=== PATIENT | female | born 2000 | race Caucasian/White ===

== ENCOUNTER 2021-02-13 09:17 | Emergency (ER) | payer OTHER, SELFPAY ==
--- NOTE | ~2021-02-13 | US_ITS ---
EXAMINATION: US PELVIS CLINICAL INFORMATION: Right-sided adnexal pain. Rule out torsion versus cyst. COMPARISON: Transabdominal imaging of the pelvis earlier today in addition to pelvic ultrasound 11/22/2018. TECHNIQUE: Ultrasound of the pelvis is performed using transvaginal transducers along with Doppler. Transvaginal imaging is performed due to inadequate visualization transabdominally. FINDINGS: Adnexa: Both ovaries are visualized. There is normal color flow to each ovary. There is no ovarian torsion. There is no pelvic ascites or fluid collection. Right ovary measures 3.6 x 1.2 x 1.8 cm. Left ovary measures 3.1 x 1.8 x 2.5 cm. Within the left ovary there is an approximately 1.1 cm hypoechoic structure which demonstrates peripheral vascularity, nonspecific but statistically a corpus luteum. US/US transvaginal IMPRESSION: Both ovaries demonstrate normal color Doppler flow.
--- NOTE | ~2021-02-13 | US_ITS ---
EXAMINATION: US PELVIS CLINICAL INFORMATION: Lower abdominal pain. Vaginal bleeding with clots. COMPARISON: CT abdomen pelvis 11/24/2018 and pelvic ultrasound 11/22/2018. TECHNIQUE: The pelvis was evaluated using transabdominal imaging. Transvaginal imaging was declined by the patient. FINDINGS: The uterus measures 8.0 x 3.5 x 4.9 cm in longitudinal by AP by transverse dimension. The endometrial stripe is not thickened and measures 0.3 cm. The left ovary measures approximately 1.9 x 1.3 x 1.7 cm and is normal. The right ovary was not clearly visualized. There are no abnormal adnexal masses. There is no free fluid in the pelvis. US/US pelvic complete IMPRESSION: Unremarkable transabdominal sonographic imaging of the uterus and left ovary. The right ovary was not clearly visualized.
--- NOTE | ~2021-02-13 | CT_ITS ---
EXAMINATION: CT ABDOMEN AND PELVIS WITH CONTRAST CLINICAL INFORMATION: Right lower quadrant abdominal pain. Rule out appendicitis. COMPARISON: Previous pelvic ultrasound from earlier the same day 18 of the abdomen and pelvis November 2018 TECHNIQUE: Multidetector volumetric images were obtained from the superior aspect of the liver through the pubic symphysis following administration 85 mL of Omnipaque 350 intravenous contrast. Sagittal and coronal reformatted images were obtained on the technologist's workstation. Oral contrast: Yes This CT examination was performed using dose optimization techniques as appropriate, variously including the following: *Automated exposure control *Adjustment of mA and/or kV according to patient size (this includes techniques or standardized protocols for targeted exams where dose is matched to indication/reason for exam; i.e. extremities or head) *Use of iterative reconstruction technique DLP: 342 mGy-cm FINDINGS: LUNG BASES: The visualized lung bases are unremarkable. LIVER, GALLBLADDER, AND BILIARY TREE: The liver is normal in size, shape, and attenuation. There are small calcifications in the central liver. No other focal hepatic lesion or biliary ductal dilatation is present. The gallbladder is unremarkable with no evidence of radiopaque gallstones, gallbladder wall thickening, or obvious pericholecystic inflammatory changes. PANCREAS: Unremarkable. SPLEEN: Unremarkable. ADRENAL GLANDS: Unremarkable. KIDNEYS AND URETERS: There are small bilateral renal stones. Kidneys are otherwise unremarkable. No hydronephrosis is seen. BLADDER: Unremarkable. GASTROINTESTINAL TRACT: The small and large bowel are unremarkable. The appendix is unremarkable. ABDOMINAL WALL: No significant hernia is appreciated. LYMPH NODES: Normal. VASCULAR: Unremarkable. PELVIC VISCERA: Unremarkable. OSSEOUS STRUCTURES: Unremarkable. CT/CT abdomen pelvis w con IMPRESSION: Small bilateral renal stones. Otherwise unremarkable exam. Normal-appearing appendix.
[2021-02-13 09:38] VITALS: BP 99/63; PULSE 87; RESP 17; TEMP 36.4; O2SAT 100; BMI 22.1
--- NOTE | 2021-02-13 11:07 | ED.FEMALEGU ---
HPI - Female Genitourinary General Chief complaint: Vaginal Bleeding Stated complaint: Vaginal bleeding Time Seen by Provider: 02/13/21 10:49 Source: patient Mode of arrival: ambulatory History of Present Illness HPI Narrative: 20-year-old female with a past medical history of kidney stones, presenting to the ED complaining vaginal bleeding with clots since yesterday. Reports filled 6 pads since this morning. LMP 2 weeks ago. Reports associated lower abdominal discomfort, nausea, and lightheadedness. Denies taking anticoagulation. Denies fever, chills, vomiting, diarrhea/constipation, vaginal discharge, dysuria, flank pain MD elicited complaint: vaginal bleeding Related Data Allergies Allergy/AdvReac Type Severity Reaction Status Date / Time blueberry [BLUEBERRY] Allergy Intermediate HIVES Unverified 12/24/19 18:45 Review of Systems Review of Systems: Constitutional: No Fever, No Chills, No Fatigue, No Malaise ENT/Mouth: No Ear Pain, No Nasal Congestion, No sore throat, No Rhinorrhea Eyes: No Eye Pain, No Redness, No Discharge, No Vision Changes Cardiovascular: No Chest Pain, No SOB, No Edema, No Palpitations Respiratory: No Cough, No Dyspnea Gastrointestinal: + Nausea, No Vomiting, No Diarrhea, No Constipation, + Abdominal pain, No Hematochezia, No Melena Genitourinary: + irregular bleeding, No Dysuria, No Hematuria, No Flank Pain, No vaginal bleeding Musculoskeletal: No joint pain, No Myalgias, No Joint Swelling Skin: No Skin Lesions, No rash Neuro: No Weakness, No Numbness, + lightheadedness, No Headache Yes all other systems are reviewed and are negative [facility] Past Medical History Attestation statement: The following information was validated with the patient. Medical History (Updated 02/13/21 @ 15:41 by SANTHOSH Liu) Kidney stone Social History Social History Alcohol intake: unknown Patient Tobacco Use Status: Tobacco use Unknown Use of substances other than those prescribed or required for medical reasons: No Advance Directives: No Advance Directives Information Provided: No Patient : No Physical Exam Vital Signs: Vital Signs: Last Vital Signs Temp 97.5 F 02/13/21 09:38 Pulse 86 02/13/21 11:36 Resp 14 02/13/21 11:31 BP 112/68 02/13/21 11:36 Pulse Ox 100 02/13/21 09:38 Body Mass Index 22.1 Const: General: cooperative, healthy appearing and no acute distress Orientation/consciousness: patient oriented x3 Limitations: no limitations HENMT: Head: Yes normal to inspection Ears: hearing grossly normal bilaterally General nose exam: Normal external nose present Face and sinus: Yes normal facial exam Eyes: General: appearance normal, both eyes and all related structures EOM: EOMs intact bilaterally Neck: Neck: Yes normal visual inspection Resp: Effort & Inspection: normal respiratory effort, no respiratory distress and no stridor Cardio: Rate: regular rate Heart sounds: S1 normal heart sound present and S2 normal heart sound present GI: Inspection: Yes normal to inspection Palpation (GI): Soft to palpation, Tenderness to palpation present (GI) (Right suprapubic) in the epigastrum, no guarding and not rigid : General: Yes no CVA tenderness Speculum Exam - Vagina: vaginal bleeding (With clots, no active hemorrhage, cleared with Q-tips) Speculum Exam - Cervix: nontender Bimanual exam- vagina & uterus: No Cervical tenderness present and no cervical motion tenderness Bimanual Exam- Adnexa, other: tender on the right and no masses noted OB/external & speculum: vaginal bleeding (With clots, no active hemorrhage, cleared with Q-tips) Back/Spine/Pelvis: Back: no CVA tenderness Skin: Rashes: no rashes Wounds: no wounds Neuro: General: patient oriented x3 Gait exam (Neuro): Normal gait present Extrem: General: Yes normal to inspection Course Course Course Narrative: -urine negative US pelvic complete IMPRESSION: Unremarkable transabdominal sonographic imaging of the uterus and left ovary. The right ovary was not clearly visualized. ?>> discussed with patient need transvaginal images to evaluate right ovary where she is having pain, patient is now agreeable, additionally will obtain CT to rule out appendicitis due to patient's continued pain -H&H stable 10.9/34.2 around patient's baseline > will do 3 hour repeat -labs otherwise unremarkable, UA with RBC/not infected -1508--US transvaginal IMPRESSION: Both ovaries demonstrate normal color Doppler flow. CT abdomen pelvis w con IMPRESSION: Small bilateral renal stones. Otherwise unremarkable exam. Normal-appearing appendix. -1539--repeat CBC stable. Results discussed with patient including worrisome signs and symptoms and strict return precautions as needed follow-up with OBGYN/PCP. Patient verbalized understanding feel safe for discharge home at this time MDM - Female Genitourinary MDM Narrative Medical decision making narrative: 20-year-old female with a past medical history of kidney stones, presenting to the ED complaining vaginal bleeding with clots since yesterday. On exam vital signs stable, NAD, abdomen soft with epigastric/right suprapubic tenderness, on pelvic vaginal bleeding with clots noted, no active hemorrhage, cleared with Q-tips, right adnexal tenderness noted, no CMT. Concern for pancreatitis vs /ectopic vs DUB vs ovarian cyst vs ? Torsion Plan: Labs, UA, pelvic ultrasound, , pain management, re-evaluate Medical Records Attestation: I reviewed the patient's medical records. Lab Data Attestation: I reviewed the patient's lab results. Result diagrams: 02/13/21 15:16 02/13/21 11:31 Labs: Lab Results 02/13/21 02/13/21 02/13/21 Range/Units 11:20 11:20 11:31 WBC 6.8 (4.8-10.8) X10*3/uL RBC 4.03 L (4.20-5.50) X10*6/uL Hgb 10.9 L (12.0-16.0) g/dl Hct 34.2 L (37.0-47.0) % MCV 84.9 (80.0-98.0) fL MCH 27.0 (27.0-33.0) pg MCHC 31.9 (31.0-35.0) g/dl RDW 14.1 (11.0-16.0) % Plt Count 172 (160-400) X10*3/uL MPV 11.3 (9.4-12.3) fL Immature Gran % (Auto) 0.3 (0.0-0.4) % Neut % (Auto) 70.0 (45-73) % Lymph % (Auto) 22.0 (20-40) % Thomas % (Auto) 6.8 (2-11) % Eos % (Auto) 0.6 (0-4) % Baso % (Auto) 0.3 (0-2) % Lymph # (Auto) 1.5 (1.2-4.9) X10*3/uL Thomas # (Auto) 0.5 (0.1-1.2) X10*3/uL Eos # (Auto) 0.0 (0.0-0.4) X10*3/uL Baso # (Auto) 0.0 (0.0-0.2) X10*3/uL Abs Immat Gran (auto) 0.02 (0.00-0.03) X10*3/uL Absolute Neuts (auto) 4.7 (2.0-8.3) x10*3/uL Absolute Nucleated RBC 0.000 (0.0-0.012) X10*3/uL Nucleated RBC % (auto) 0.0 (0.0-0.2) /100WBC Sodium (135-145) mmol/L Potassium (3.3-5.1) mmol/L Chloride (96-108) mmol/L Carbon Dioxide (22-29) mmol/L Anion Gap (12-20) BUN (9-16) mg/dL Creatinine (0.5-1.4) mg/dL Estim Creat Clear Calc Estimated GFR Random Glucose (60-115) mg/dL Calcium (8.4-10.2) mg/dL Magnesium (1.6-2.6) mg/dL Total Bilirubin (0.0-1.0) mg/dL Direct Bilirubin (0.0-0.5) mg/dL AST (5-31) U/L ALT (0-31) U/L Alkaline Phosphatase (39-117) U/L Total Protein (6.5-8.0) g/dL Albumin (3.5-5.0) g/dL Lipase (8-78) U/L Beta HCG, Quant mIU/mL Urine Color YELLOW Urine Appearance CLEAR Urine pH 5.5 (5.0-8.0) Ur Specific [place] >= 1.030 H (1.005-1.025) Urine Protein NEG (NEG-TRACE) MG/DL Urine Glucose (UA) NEG (NEG) MG/DL Urine Ketones NEG (NEG) MG/DL Urine Blood 3+ H (NEG) Urine Nitrite NEG (NEG) Ur Leukocyte Esterase NEG (NEG) Urine RBC 10-14 H (0) /HPF Urine WBC 0 (0-4) /HPF Ur Squamous Epith Cells 2+ /LPF Urine Bacteria NONE /LPF Urine Mucus 3+ /LPF Urine Test NEGATIVE (NEGATIVE) 02/13/21 02/13/21 Range/Units 11:31 15:16 WBC 6.4 (4.8-10.8) X10*3/uL RBC 3.71 L (4.20-5.50) X10*6/uL Hgb 10.2 L (12.0-16.0) g/dl Hct 31.6 L (37.0-47.0) % MCV 85.2 (80.0-98.0) fL MCH 27.5 (27.0-33.0) pg MCHC 32.3 (31.0-35.0) g/dl RDW 14.2 (11.0-16.0) % Plt Count 156 L (160-400) X10*3/uL MPV 10.9 (9.4-12.3) fL Immature Gran % (Auto) 0.3 (0.0-0.4) % Neut % (Auto) 64.5 (45-73) % Lymph % (Auto) 27.1 (20-40) % Thomas % (Auto) 7.0 (2-11) % Eos % (Auto) 0.9 (0-4) % Baso % (Auto) 0.2 (0-2) % Lymph # (Auto) 1.7 (1.2-4.9) X10*3/uL Thomas # (Auto) 0.5 (0.1-1.2) X10*3/uL Eos # (Auto) 0.1 (0.0-0.4) X10*3/uL Baso # (Auto) 0.0 (0.0-0.2) X10*3/uL Abs Immat Gran (auto) 0.02 (0.00-0.03) X10*3/uL Absolute Neuts (auto) 4.1 (2.0-8.3) x10*3/uL Absolute Nucleated RBC 0.000 (0.0-0.012) X10*3/uL Nucleated RBC % (auto) 0.0 (0.0-0.2) /100WBC Sodium 137 (135-145) mmol/L Potassium 3.9 (3.3-5.1) mmol/L Chloride 107 (96-108) mmol/L Carbon Dioxide 25 (22-29) mmol/L Anion Gap 9 L (12-20) BUN 10 (9-16) mg/dL Creatinine 0.75 (0.5-1.4) mg/dL Estim Creat Clear Calc 102.4 Estimated GFR > 60 Random Glucose 90 (60-115) mg/dL Calcium 8.9 (8.4-10.2) mg/dL Magnesium 1.8 (1.6-2.6) mg/dL Total Bilirubin 0.7 (0.0-1.0) mg/dL Direct Bilirubin 0.3 (0.0-0.5) mg/dL AST 17 (5-31) U/L ALT 6 (0-31) U/L Alkaline Phosphatase 59 (39-117) U/L Total Protein 6.7 (6.5-8.0) g/dL Albumin 4.1 (3.5-5.0) g/dL Lipase 32 (8-78) U/L Beta HCG, Quant < 2 mIU/mL Urine Color Urine Appearance Urine pH (5.0-8.0) Ur Specific [place] (1.005-1.025) Urine Protein (NEG-TRACE) MG/DL Urine Glucose (UA) (NEG) MG/DL Urine Ketones (NEG) MG/DL Urine Blood (NEG) Urine Nitrite (NEG) Ur Leukocyte Esterase (NEG) Urine RBC (0) /HPF Urine WBC (0-4) /HPF Ur Squamous Epith Cells /LPF Urine Bacteria /LPF Urine Mucus /LPF Urine Test (NEGATIVE) Discharge Plan Discharge Clinical Impression: Vaginal bleeding Abdominal pain Qualifiers: Abdominal location: right lower quadrant Qualified Code(s): R10.31 - Right lower quadrant pain Patient Disposition: Home, Self-Care Additional Instructions: Your blood work was reassuring today in the emergency department Her with negative Your ultrasound was unremarkable Her CT scan did not show any acute findings Please stay hydrated and rest at home Take Tylenol and Motrin If her symptoms persist or worsen, your bleeding increases, you develop constant worsening abdominal pain, your unable to eat or drink, lightheadedness or dizziness please return to the ED Call your OBGYN for follow-up Referrals: Sin Romero MD [Physician] - 2 days
[2021-02-13 11:30] LABS: Appearance Urine CLEAR; Color Urine YELLOW; Glucose Urine UA NEG (NEG); Leukocyte Esterase Urine NEG (NEG); Nitrite Urine NEG (NEG); PH 5.5 (5.0-8.0); Specific Gravity - Urine >= 1.030 (1.005-1.025); UACC Culture Trigger NO; Urine Blood 3+ (NEG); Urine Ketones NEG (NEG); Urine Protein NEG (NEG-TRACE)
[2021-02-13 11:31] VITALS: BP 105/47; PULSE 76; RESP 14
[2021-02-13 11:32] LABS: Urine Pregnancy NEGATIVE (NEGATIVE)
[2021-02-13 11:33] LABS: UPreg QC Valid YES
[2021-02-13 11:35] VITALS: BP 105/47; BP 98/55; PULSE 74; PULSE 76
[2021-02-13] MEDS: 0.9 % Sodium Chloride 1,000 ML 999 ML IVCONT (11:35)
[2021-02-13] MEDS: Famotidine/PF 20 MG/2 ML VIAL IVPUSH (11:35)
[2021-02-13 11:36] VITALS: BP 112/68; PULSE 86
[2021-02-13 11:36] LABS: MANUAL DIFF FLAG NO
[2021-02-13 11:41] LABS: Basophils Percent Auto 0.3 % (0-2); Eosinophils Percent Auto 0.6 % (0-4); Hematocrit 34.2 % (37.0-47.0); Hemoglobin 10.9 g/dl (12.0-16.0); Imm Gran Abs Auto 0.02 X10*3/uL (0.00-0.03); Imm Gran Pct Auto 0.3 % (0.0-0.4); Lymphocytes Absolute Auto 1.5 X10*3/uL (1.2-4.9); Mean Corpuscular HGB Conc 31.9 g/dl (31.0-35.0); Mean Corpuscular Volume 84.9 fL (80.0-98.0); Mean Platelet Volume 11.3 fL (9.4-12.3); Monocytes Absolute Auto 0.5 X10*3/uL (0.1-1.2); Monocytes Percent Auto 6.8 % (2-11); Neutrophils Absolute Auto 4.7 x10*3/uL (2.0-8.3); Platelet Count 172 X10*3/uL (160-400); Red Blood Count 4.03 X10*6/uL (4.20-5.50); Red Cell Distribution Width 14.1 % (11.0-16.0); White Blood Count 6.8 X10*3/uL (4.8-10.8)
[2021-02-13 11:41] LABS: Mucus Urine 3+ /LPF; Squamous Epithelial Cell Urine 2+ /LPF; WBC Urine 0 /HPF (0-4)
[2021-02-13 12:11] LABS: HCG Quantitative < 2 mIU/mL
[2021-02-13 12:13] LABS: Alanine Aminotransferase 6 U/L (0-31); Albumin Level 4.1 g/dL (3.5-5.0); Alkaline Phosphatase 59 U/L (39-117); Anion Gap 9 (12-20); Aspartate Amino Transferase 17 U/L (5-31); Bilirubin Direct 0.3 mg/dL (0.0-0.5); Bilirubin Total 0.7 mg/dL (0.0-1.0); Blood Urea Nitrogen 10 mg/dL (9-16); Calcium 8.9 mg/dL (8.4-10.2); Carbon Dioxide 25 mmol/L (22-29); Chloride 107 mmol/L (96-108); Creatinine Clr Calc Pharmacy 102.4; Estimated Glomerular Filt Rate > 60; Glucose Random 90 mg/dL (60-115); Lipase 32 U/L (8-78); Magnesium 1.8 mg/dL (1.6-2.6); Potassium 3.9 mmol/L (3.3-5.1); Sodium 137 mmol/L (135-145); Total Protein 6.7 g/dL (6.5-8.0)
[2021-02-13] MEDS: Ketorolac Tromethamine 15 MG/ML VIAL IVPUSH (12:57)
[2021-02-13] MEDS: ondansetron HCL 4 MG/2 ML VIAL IVPUSH (12:57)
[2021-02-13] MEDS: iohexoL 350 MG/ML 100 ML INFUS..BTL IV (14:50)
[2021-02-13 15:20] LABS: MANUAL DIFF FLAG NO
[2021-02-13 15:21] LABS: Basophils Percent Auto 0.2 % (0-2); Eosinophils Absolute Auto 0.1 X10*3/uL (0.0-0.4); Eosinophils Percent Auto 0.9 % (0-4); Hematocrit 31.6 % (37.0-47.0); Hemoglobin 10.2 g/dl (12.0-16.0); Imm Gran Abs Auto 0.02 X10*3/uL (0.00-0.03); Imm Gran Pct Auto 0.3 % (0.0-0.4); Lymphocytes Absolute Auto 1.7 X10*3/uL (1.2-4.9); Lymphocytes Percent Auto 27.1 % (20-40); Mean Corpuscular HGB Conc 32.3 g/dl (31.0-35.0); Mean Corpuscular Hemoglobin 27.5 pg (27.0-33.0); Mean Corpuscular Volume 85.2 fL (80.0-98.0); Mean Platelet Volume 10.9 fL (9.4-12.3); Monocytes Absolute Auto 0.5 X10*3/uL (0.1-1.2); Neutrophils Absolute Auto 4.1 x10*3/uL (2.0-8.3); Neutrophils Percent Auto 64.5 % (45-73); Platelet Count 156 X10*3/uL (160-400); Red Blood Count 3.71 X10*6/uL (4.20-5.50); Red Cell Distribution Width 14.2 % (11.0-16.0); White Blood Count 6.4 X10*3/uL (4.8-10.8)
== END 2021-02-13 16:46 | disposition home or self-care (01) ==
PROVIDERS: Physician Assistant; Emergency Provider Emergency Medicine Emergency Medical Services
DX: N93.9 Abnormal uterine and vaginal bleeding, unspecified (principal); R10.31 Right lower quadrant pain; R10.2 Pelvic and perineal pain; Z79.899 Other long term (current) drug therapy
CPT/HCPCS: 36415; 74177; 76830; 76856; 80048; 80076; 81001; 81025; 83690; 83735; 84702; 85025; 96361; 96374; 96375; 99284; 99285; J1885; J2405; Q9967

== ENCOUNTER 2021-02-21 20:53 | Emergency (ER) | payer OTHER, SELFPAY ==
[2021-02-21 21:11] VITALS: BP 100/61; PULSE 86; RESP 16; TEMP 36.5; O2SAT 100; BMI 21.6
[2021-02-21 21:58] VITALS: BP 108/68; PULSE 78; RESP 18; O2SAT 100
--- NOTE | 2021-02-21 21:59 | ED_ITS ---
HPI - Abdominal Pain General Chief Complaint: Abdominal Pain Stated Complaint: abd pain Time Seen by Provider: 02/21/21 21:15 Source: patient Mode of arrival: ambulatory Limitations: no limitations History of Present Illness HPI narrative: This is a 20 years old patient presented with a chief complaint of lower abdominal pain since yesterday. She denies any vomiting my she endorses nausea there is no diarrhea. The patient was evaluated in the emergency department on February [address] scan of the abdomen and pelvis under ultrasound of the pelvis both normal MD elicited complaint: abdominal pain Pertinent past history: none Onset (ago): day(s) (1) Pain Consistency: constant Location: LLQ Severity: moderate Quality: cramping Radiation: none Migration to: no migration Associated symptoms: nausea Related Data Allergies Allergy/AdvReac Type Severity Reaction Status Date / Time blueberry [BLUEBERRY] Allergy Intermediate HIVES Verified 02/21/21 22:15 Review of Systems Review of Systems Yes all other systems are reviewed and are negative Constitutional: Reports no additional constitutional complaints Cardiovascular: Reports no additional cardiovascular complaints Respiratory: Reports no additional respiratory complaints Gastrointestinal: Reports no additional gastrointestinal complaints, Denies change in stool character and Denies coffee ground emesis Musculoskeletal: Reports no additional musculoskeletal complaints Physical Exam Vital Signs: Vital Signs: Last Vital Signs Temp 98.7 F 02/22/21 00:35 Pulse 81 02/22/21 00:35 Resp 16 02/22/21 00:35 BP 110/72 02/22/21 00:35 Pulse Ox 99 02/22/21 00:35 Body Mass Index 21.6 Const: General: cooperative, healthy appearing, comfortable and no acute distress Nutritional Appearance: average body habitus Orientation/consci ousness: patient oriented x3 HENMT: Head: Yes normal to inspection Face and sinus: Yes normal facial exam Mouth: Normal oral and palatal mucosa present Teeth and gingiva: dentition normal Throat: Yes posterior oropharynx normal Neck: Neck: Yes normal visual inspection Chest: Chest palpation & inspection: normal inspection of the chest Resp: Effort & Inspection: normal respiratory effort Auscultation: clear to auscultation bilaterally Cardio: Jugular venous distension: no JVD Rate: regular rate Rhythm: regular rhythm GI: Inspection: Yes normal to inspection Palpation (GI): Soft to palpation and Tenderness to palpation present (GI) in the LLQ Auscultation: normal bowel sounds Skin: General skin exam: no rashes or lesions noted, elasticity normal and turgor normal Rashes: no rashes Neuro: General: patient oriented x3 Course Reevaluation(s) Reevaluation #1: She is feeling much better at this time labs are good, I do not think we need to repeat another CT scan nor another ultrasound ,she had imaging done on February 13 patient is only 20 years old MDM - Abdominal Pain Lab Data Result diagrams: 02/21/21 22:06 02/21/21 22:06 Labs: Lab Results 02/21/21 02/21/21 02/21/21 Range/Units 22:06 22:06 22:06 WBC 7.6 (4.8-10.8) X10*3/uL RBC 4.17 L (4.20-5.50) X10*6/uL Hgb 11.6 L (12.0-16.0) g/dl Hct 35.3 L (37.0-47.0) % MCV 84.7 (80.0-98.0) fL MCH 27.8 (27.0-33.0) pg MCHC 32.9 (31.0-35.0) g/dl RDW 14.3 (11.0-16.0) % Plt Count 230 D (160-400) X10*3/uL MPV 10.9 (9.4-12.3) fL Immature Gran % (Auto) 0.3 (0.0-0.4) % Neut % (Auto) 56.2 (45-73) % Lymph % (Auto) 33.3 (20-40) % [place] % (Auto) 8.9 (2-11) % Eos % (Auto) 1.0 (0-4) % Baso % (Auto) 0.3 (0-2) % Lymph # (Auto) 2.5 (1.2-4.9) X10*3/uL [place] # (Auto) 0.7 (0.1-1.2) X10*3/uL Eos # (Auto) 0.1 (0.0-0.4) X10*3/uL Baso # (Auto) 0.0 (0.0-0.2) X10*3/uL Abs Immat Gran (auto) 0.02 (0.00-0.03) X10*3/uL Absolute Neuts (auto) 4.3 (2.0-8.3) x10*3/uL Absolute Nucleated RBC 0.000 (0.0-0.012) X10*3/uL Nucleated RBC % (auto) 0.0 (0.0-0.2) /100WBC Sodium 139 (135-145) mmol/L Potassium 3.8 (3.3-5.1) mmol/L Chloride 106 (96-108) mmol/L Carbon Dioxide 29 (22-29) mmol/L Anion Gap 8 L (12-20) BUN 8 L (9-16) mg/dL Creatinine 0.80 (0.5-1.4) mg/dL Estim Creat Clear Calc 100.0 Estimated GFR > 60 Random Glucose 97 (60-115) mg/dL Calcium 9.3 (8.4-10.2) mg/dL Total Bilirubin 0.8 (0.0-1.0) mg/dL AST 18 (5-31) U/L ALT 8 (0-31) U/L Alkaline Phosphatase 62 (39-117) U/L Total Protein 7.0 (6.5-8.0) g/dL Albumin 4.2 (3.5-5.0) g/dL Lipase 44 (8-78) U/L Beta HCG, Quant < 2 mIU/mL Urine Color Urine Appearance Urine pH (5.0-8.0) Ur Specific [place] (1.005-1.025) Urine Protein (NEG-TRACE) MG/DL Urine Glucose (UA) (NEG) MG/DL Urine Ketones (NEG) MG/DL Urine Blood (NEG) Urine Nitrite (NEG) Ur Leukocyte Esterase (NEG) Urine Test (NEGATIVE) 02/22/21 02/22/21 Range/Units 00:13 00:13 WBC (4.8-10.8) X10*3/uL RBC (4.20-5.50) X10*6/uL Hgb (12.0-16.0) g/dl Hct (37.0-47.0) % MCV (80.0-98.0) fL MCH (27.0-33.0) pg MCHC (31.0-35.0) g/dl RDW (11.0-16.0) % Plt Count (160-400) X10*3/uL MPV (9.4-12.3) fL Immature Gran % (Auto) (0.0-0.4) % Neut % (Auto) (45-73) % Lymph % (Auto) (20-40) % [place] % (Auto) (2-11) % Eos % (Auto) (0-4) % Baso % (Auto) (0-2) % Lymph # (Auto) (1.2-4.9) X10*3/uL [place] # (Auto) (0.1-1.2) X10*3/uL Eos # (Auto) (0.0-0.4) X10*3/uL Baso # (Auto) (0.0-0.2) X10*3/uL Abs Immat Gran (auto) (0.00-0.03) X10*3/uL Absolute Neuts (auto) (2.0-8.3) x10*3/uL Absolute Nucleated RBC (0.0-0.012) X10*3/uL Nucleated RBC % (auto) (0.0-0.2) /100WBC Sodium (135-145) mmol/L Potassium (3.3-5.1) mmol/L Chloride (96-108) mmol/L Carbon Dioxide (22-29) mmol/L Anion Gap (12-20) BUN (9-16) mg/dL Creatinine (0.5-1.4) mg/dL Estim Creat Clear Calc Estimated GFR Random Glucose (60-115) mg/dL Calcium (8.4-10.2) mg/dL Total Bilirubin (0.0-1.0) mg/dL AST (5-31) U/L ALT (0-31) U/L Alkaline Phosphatase (39-117) U/L Total Protein (6.5-8.0) g/dL Albumin (3.5-5.0) g/dL Lipase (8-78) U/L Beta HCG, Quant mIU/mL Urine Color YELLOW Urine Appearance CLEAR Urine pH 6.5 (5.0-8.0) Ur Specific [place] 1.025 (1.005-1.025) Urine Protein NEG (NEG-TRACE) MG/DL Urine Glucose (UA) NEG (NEG) MG/DL Urine Ketones NEG (NEG) MG/DL Urine Blood NEG (NEG) Urine Nitrite NEG (NEG) Ur Leukocyte Esterase NEG (NEG) Urine Test NEGATIVE (NEGATIVE) Discharge Plan Discharge Clinical Impression: Abdominal pain Patient Disposition: Home, Self-Care Instructions: Abdominal Pain (ED) Additional Instructions: Follow-up with your primary care physician tomorrow clear liquid diet for 24:48 hours return to the emergency room if you worse any concern Stand Alone Forms: Work/School Release Interventions: ED Discharge Assessment Last Done: 02/22/21 00:37 Discharge Date/Time: 02/22/21 00:38 [facility] Past Medical History Medical History Kidney stone Social History Social History Alcohol intake: unknown Patient Tobacco Use Status: Tobacco use Unknown Advance Directives: No Advance Directives Information Provided: No Patient : No
[2021-02-21] MEDS: diphenhydrAMINE HCL 50 MG/ML VIAL 12.5 MG IVPUSH (22:11)
[2021-02-21] MEDS: 0.9 % Sodium Chloride 1,000 ML 999 ML IVCONT (22:11)
[2021-02-21] MEDS: Metoclopramide HCl 10 MG/2 ML VIAL IVPUSH (22:12)
[2021-02-21 22:13] LABS: Basophils Percent Auto 0.3 % (0-2); Eosinophils Absolute Auto 0.1 X10*3/uL (0.0-0.4); Hematocrit 35.3 % (37.0-47.0); Hemoglobin 11.6 g/dl (12.0-16.0); Imm Gran Abs Auto 0.02 X10*3/uL (0.00-0.03); Imm Gran Pct Auto 0.3 % (0.0-0.4); Lymphocytes Absolute Auto 2.5 X10*3/uL (1.2-4.9); Lymphocytes Percent Auto 33.3 % (20-40); MANUAL DIFF FLAG NO; Mean Corpuscular HGB Conc 32.9 g/dl (31.0-35.0); Mean Corpuscular Hemoglobin 27.8 pg (27.0-33.0); Mean Corpuscular Volume 84.7 fL (80.0-98.0); Mean Platelet Volume 10.9 fL (9.4-12.3); Monocytes Absolute Auto 0.7 X10*3/uL (0.1-1.2); Monocytes Percent Auto 8.9 % (2-11); Neutrophils Absolute Auto 4.3 x10*3/uL (2.0-8.3); Neutrophils Percent Auto 56.2 % (45-73); Platelet Count 230 X10*3/uL (160-400); Red Blood Count 4.17 X10*6/uL (4.20-5.50); Red Cell Distribution Width 14.3 % (11.0-16.0); White Blood Count 7.6 X10*3/uL (4.8-10.8)
[2021-02-21 22:28] LABS: Alanine Aminotransferase 8 U/L (0-31); Albumin Level 4.2 g/dL (3.5-5.0); Alkaline Phosphatase 62 U/L (39-117); Anion Gap 8 (12-20); Aspartate Amino Transferase 18 U/L (5-31); Bilirubin Total 0.8 mg/dL (0.0-1.0); Blood Urea Nitrogen 8 mg/dL (9-16); Calcium 9.3 mg/dL (8.4-10.2); Carbon Dioxide 29 mmol/L (22-29); Chloride 106 mmol/L (96-108); Estimated Glomerular Filt Rate > 60; Glucose Random 97 mg/dL (60-115); Lipase 44 U/L (8-78); Potassium 3.8 mmol/L (3.3-5.1); Sodium 139 mmol/L (135-145)
[2021-02-21 22:31] LABS: HCG Quantitative < 2 mIU/mL
[2021-02-22 00:20] LABS: Appearance Urine CLEAR; Color Urine YELLOW; Glucose Urine UA NEG (NEG); Leukocyte Esterase Urine NEG (NEG); Nitrite Urine NEG (NEG); PH 6.5 (5.0-8.0); Specific Gravity - Urine 1.025 (1.005-1.025); Urine Blood NEG (NEG); Urine Ketones NEG (NEG); Urine Protein NEG (NEG-TRACE)
[2021-02-22 00:23] LABS: UPreg QC Valid YES; Urine Pregnancy NEGATIVE (NEGATIVE)
[2021-02-22 00:35] VITALS: BP 110/72; PULSE 81; RESP 16; TEMP 37.1; O2SAT 99
--- NOTE | 2021-02-22 00:36 | PC.NURSE ---
Pt alert and oriented x4, calm and cooperative. Pt states pain improved. Denies N/V at this time. Denies pain with urinating. Pt voided in ER without issues. Pt educated on dc. IV removed. Vitals stable. Pt ambulated out of ER with friend.
== END 2021-02-22 00:38 | disposition home or self-care (01) ==
PROVIDERS: Student in an Organized Health Care Education/Training Program; Emergency Provider Emergency Medicine
DX: R10.32 Left lower quadrant pain (principal); Z79.899 Other long term (current) drug therapy
CPT/HCPCS: 36415; 80053; 81003; 81025; 83690; 84702; 85025; 96361; 96374; 96375; 99284; J1200; J2765

== ENCOUNTER 2021-12-09 13:08 | Emergency (ER) | payer OTHER, SELFPAY ==
--- NOTE | ~2021-12-09 | US_ITS ---
EXAMINATION: US renal BI, US OB limited CLINICAL INFORMATION: Right flank pain. Renal colic. Diffuse abdominal pain. 15 weeks . COMPARISON: Pelvic ultrasound 02/13/2021. CT abdomen pelvis 02/13/2021. TECHNIQUE: Transabdominal grayscale and color renal ultrasonography; transabdominal grayscale and M-mode OB ultrasound. FINDINGS: Right kidney: 11.7 cm x 3.7 cm x 5.6 cm. No hydronephrosis. Echogenic foci consistent with renal calculi: A pole 5 mm focus, mid pole 3 mm focus, lower pole 4 mm focus. No perinephric fluid collections. No focal parenchymal lesions. Normal color Doppler interrogation. Left kidney: 10.8 cm x 4.4 cm x 4.9 cm. No hydronephrosis or focal parenchymal lesions. No perinephric fluid collections. Echogenic foci consistent with calculi: A pole 3 mm, lower pole 4 mm. Normal color Doppler interrogation. OB ultrasound: Single live intrauterine gestation is identified. The placenta is normal in appearance. No retroplacental fluid collections are identified. The cervical os is not completely visualized. Partial visualization is made of the right ovary measuring 2.1 cm x 2.3 cm x 3.0 cm. Partial visualization is made of the left ovary measuring 3.8 cm x 1.5 cm x 1.6 cm. The ovaries are normal in appearance. No gross fluid is noted in the pelvic cul-de-sac. Electrician Master measurements: Biparietal diameter 3.01 cm; 15 weeks 4 days. Occipital frontal diameter: 3.85 cm; 15 weeks 4 days. Head circumference 11.38 cm; 15 weeks 4 days. Abdominal circumference: 9.17 cm; 15 weeks 3 days. Femur length: 1.69 cm; 15 weeks 0 days. M-mode interrogation demonstrates a heart rate of 140 bpm. Estimated weight 0 lbs. 4 oz. (118 g) 43 percentile. Sonographic gestational age: 15 weeks 3 day. Estimated date of delivery 05/30/2022. The stomach is identified. The kidneys, bladder and heart are not visualized. US/US renal BI IMPRESSION: Renal ultrasound: *Bilateral multiple nonobstructing punctate renal calculi measuring up to 4 mm in diameter. No hydronephrosis or perinephric fluid collections. No right-sided hydronephrosis. Limited OB ultrasound: *Single live intrauterine gestation, sonographic estimated age 15 weeks 3 days, estimated date of delivery 05/30/2022. *Of note, this examination does not comprise a comprehensive anatomic survey.
--- NOTE | ~2021-12-09 | US_ITS ---
EXAMINATION: US renal BI, US OB limited CLINICAL INFORMATION: Right flank pain. Renal colic. Diffuse abdominal pain. 15 weeks . COMPARISON: Pelvic ultrasound 02/13/2021. CT abdomen pelvis 02/13/2021. TECHNIQUE: Transabdominal grayscale and color renal ultrasonography; transabdominal grayscale and M-mode OB ultrasound. FINDINGS: Right kidney: 11.7 cm x 3.7 cm x 5.6 cm. No hydronephrosis. Echogenic foci consistent with renal calculi: A pole 5 mm focus, mid pole 3 mm focus, lower pole 4 mm focus. No perinephric fluid collections. No focal parenchymal lesions. Normal color Doppler interrogation. Left kidney: 10.8 cm x 4.4 cm x 4.9 cm. No hydronephrosis or focal parenchymal lesions. No perinephric fluid collections. Echogenic foci consistent with calculi: A pole 3 mm, lower pole 4 mm. Normal color Doppler interrogation. OB ultrasound: Single live intrauterine gestation is identified. The placenta is normal in appearance. No retroplacental fluid collections are identified. The cervical os is not completely visualized. Partial visualization is made of the right ovary measuring 2.1 cm x 2.3 cm x 3.0 cm. Partial visualization is made of the left ovary measuring 3.8 cm x 1.5 cm x 1.6 cm. The ovaries are normal in appearance. No gross fluid is noted in the pelvic cul-de-sac. Cleaning Crew Member measurements: Biparietal diameter 3.01 cm; 15 weeks 4 days. Occipital frontal diameter: 3.85 cm; 15 weeks 4 days. Head circumference 11.38 cm; 15 weeks 4 days. Abdominal circumference: 9.17 cm; 15 weeks 3 days. Femur length: 1.69 cm; 15 weeks 0 days. M-mode interrogation demonstrates a heart rate of 140 bpm. Estimated weight 0 lbs. 4 oz. (118 g) 43 percentile. Sonographic gestational age: 15 weeks 3 day. Estimated date of delivery 05/30/2022. The stomach is identified. The kidneys, bladder and heart are not visualized. US/US OB limited IMPRESSION: Renal ultrasound: *Bilateral multiple nonobstructing punctate renal calculi measuring up to 4 mm in diameter. No hydronephrosis or perinephric fluid collections. No right-sided hydronephrosis. Limited OB ultrasound: *Single live intrauterine gestation, sonographic estimated age 15 weeks 3 days, estimated date of delivery 05/30/2022. *Of note, this examination does not comprise a comprehensive anatomic survey.
[2021-12-09 13:21] VITALS: BP 109/82; PULSE 104; RESP 18; TEMP 36; O2SAT 96; BMI 21.4
--- NOTE | 2021-12-09 13:24 | ECG_ITS ---
Test Reason : NEAR SYNCOPE Blood Pressure : / mmHG Vent. Rate : 103 BPM Atrial Rate : 103 BPM P-R Int : 124 ms QRS Dur : 080 ms QT Int : 328 ms P-R-T Axes : 063 085 040 degrees QTc Int : 429 ms Sinus tachycardia Otherwise normal ECG No previous ECGs available Referred By: Generic ED Physician Electronically Signed By:REBECCA GAGNON
[2021-12-09 13:39] LABS: MANUAL DIFF FLAG NO
[2021-12-09 13:41] LABS: Basophils Percent Auto 0.2 % (0-2); Eosinophils Percent Auto 0.4 % (0-4); Hematocrit 33.1 % (37.0-47.0); Hemoglobin 11.2 g/dl (12.0-16.0); Imm Gran Abs Auto 0.03 X10*3/uL (0.00-0.03); Imm Gran Pct Auto 0.3 % (0.0-0.4); Lymphocytes Absolute Auto 1.3 X10*3/uL (1.2-4.9); Lymphocytes Percent Auto 13.5 % (20-40); Mean Corpuscular HGB Conc 33.8 g/dl (31.0-35.0); Mean Corpuscular Hemoglobin 27.3 pg (27.0-33.0); Mean Corpuscular Volume 80.5 fL (80.0-98.0); Mean Platelet Volume 10.7 fL (9.4-12.3); Monocytes Absolute Auto 0.5 X10*3/uL (0.1-1.2); Monocytes Percent Auto 5.2 % (2-11); Neutrophils Absolute Auto 7.9 x10*3/uL (2.0-8.3); Neutrophils Percent Auto 80.4 % (45-73); Platelet Count 221 X10*3/uL (160-400); Red Blood Count 4.11 X10*6/uL (4.20-5.50); Red Cell Distribution Width 13.5 % (11.0-16.0); White Blood Count 9.9 X10*3/uL (4.8-10.8)
[2021-12-09 14:05] LABS: Appearance Urine Turbid; Color Urine Yellow; Glucose Urine UA Negative (Negative); Leukocyte Esterase Urine Moderate (2+) (Negative); Nitrite Urine Negative (Negative); UPreg QC Valid YES; Urine Blood Small (1+) (Negative); Urine Ketones Trace mg/dL (Negative); Urine Pregnancy POSITIVE (NEGATIVE); Urine Protein 30 (1+) mg/dL (Neg-Trace)
[2021-12-09 14:06] LABS: Troponin-I High Sensitivity < 3.5 ng/L (<3.5-17.0)
[2021-12-09 14:15] LABS: Bacteria Urine 2+ (None Seen); Hyaline Casts Urine 0-2 /LPF (0-2)
[2021-12-09 14:16] LABS: Alanine Aminotransferase < 6 U/L (0-31); Albumin Level 4.2 g/dL (3.5-5.0); Alkaline Phosphatase 52 U/L (39-117); Anion Gap 16 (12-20); Aspartate Amino Transferase 17 U/L (5-31); Bilirubin Total 0.7 mg/dL (0.0-1.0); Blood Urea Nitrogen 7 mg/dL (9-16); Calcium 9.7 mg/dL (8.4-10.2); Carbon Dioxide 22 mmol/L (22-29); Chloride 103 mmol/L (96-108); Creatinine Clr Calc Pharmacy 111.8; Estimated Glomerular Filt Rate > 60; Glucose Random 86 mg/dL (60-115); Potassium 3.8 mmol/L (3.3-5.1); Sodium 137 mmol/L (135-145); Total Protein 7.4 g/dL (6.5-8.0)
[2021-12-09 15:16] LABS: HCG Quantitative 44218 mIU/mL
--- NOTE | 2021-12-09 16:50 | PC.NURSE ---
C/O PELVIC PAIN STARTING TODAY AFTER FALL, DENIES VAGINAL BLEEDING. DENIES ANY ABD IMPACT. FOLLOWED BY [facility].
--- NOTE | 2021-12-09 16:51 | PC.NURSE ---
PT AMBULATING TO ROOM STEADILY AND INDEPENDENTLY WITH NO ISSUE. DENIES DIZZINESS AT THIS TIME.
--- NOTE | 2021-12-09 17:03 | ED_ITS ---
HPI - General Adult General Chief complaint: Fall Stated complaint: 15 weeks , fall left side Time Seen by Provider: 12/09/21 16:30 Source: patient Mode of arrival: ambulatory History of Present Illness HPI narrative: 21-year-old female with history of fainting spells, currently gravid at 15 weeks by ultrasound and being followed at [facility] with a currently benign course. Patient reports that she has not been eating or drinking a lot lately and that she rushed out of the house to fish bait picker her significant other and then felt herself began to faint and tried to grab on to the hand rails of the porch with limited success and patient landed onto her back. She denies any prodrome mole fever, chills, she is nauseous at baseline and denies any new cough/sore throat, and denies any diarrhea or urinary symptoms. She does endorse that she has had a history of renal colic. She complains of diffuse abdominal discomfor t. Related Data Previous Rx's Medication Instructions Recorded nitrofurantoin 100 mg PO Q12H 7 days #14 caps 12/09/21 monohydrate/macrocrystals 100 mg capsule (Macrobid) Allergies Allergy/AdvReac Type Severity Reaction Status Date / Time blueberry [BLUEBERRY] Allergy Intermediate HIVES Verified 02/21/21 22:15 Review of Systems Review of Systems: Pertinent positives and negatives as stated in HPI 10 point review of systems is otherwise negative. PMFSH Past Medical History Source: nursing notes reviewed Medical History Kidney stone Social History Social History Alcohol intake: unknown Patient Tobacco Use Status: Tobacco use Unknown Advance Directives: No Advance Directives Information Provided: No Patient : Yes Physical Exam ED Vital Signs: Vital Signs - 24 hr 12/09/21 13:21 12/09/21 18:00 12/09/21 19:48 Temperature 96.8 F Pulse Rate 104 H 76 Respiratory Rate 18 16 16 Blood Pressure 109/82 108/58 L Pulse Oximetry 96 100 Oxygen Delivery Method Room Air Room Air BMI result Body Mass Index 21.4 VITAL SIGNS: Reviewed. GENERAL: Well developed, well nourished, in no acute distress. HEAD: Normocephalic/atraumatic EYES: PERRLA, EOMI EARS: Ext canals without abnormality OROPHARYNX: no oral lesions noted, posterior pharynx clear LUNGS: Normal breath sounds. No adventitious sounds or accessory muscle use. SpO2<96> CARDIOVASCULAR: Regular rate and rhythm without noted murmurs ABDOMEN: Soft, gravid, diffusely tender but maximal at right flank without rebound, non-distended with bowel sounds. MUSCULOSKELETAL: No tenderness, deformities, or effusions noted on gross inspection. EXTREMITIES: No cyanosis, clubbing or edema. SKIN: Inspection of the skin reveals no rashes NEUROLOGIC: Alert and oriented x 4. Strength and sensation to light touch were grossly intact x 4. Course Course Course Narrative: 21-year-old female with history and clinical presentation most consistent with a combination of dehydration on review of all investigations has a positive UA in the presence of hematuria and given patient's abdominal discomfort raising clinical suspicion for possible renal colic. Will proceed with Ob ultrasound as well as ultrasound of the kidneys to evaluate for possible obstructive uropathy. She will also receive antibiotics. Review of ultrasound findings negative for evidence of renal colic, on re- evaluation patient is feeling much better, single IUP is noted with FHR-140. 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 Medical Decision Making Lab Data Result diagrams: 12/09/21 13:33 12/09/21 13:33 Labs: Lab Results 12/09/21 12/09/21 12/09/21 Range/Units 13:33 13:33 13:33 WBC 9.9 (4.8-10.8) X10*3/uL RBC 4.11 L (4.20-5.50) X10*6/uL Hgb 11.2 L (12.0-16.0) g/dl Hct 33.1 L (37.0-47.0) % MCV 80.5 (80.0-98.0) fL MCH 27.3 (27.0-33.0) pg MCHC 33.8 (31.0-35.0) g/dl RDW 13.5 (11.0-16.0) % Plt Count 221 (160-400) X10*3/uL MPV 10.7 (9.4-12.3) fL Immature Gran % (Auto) 0.3 (0.0-0.4) % Neut % (Auto) 80.4 H (45-73) % Lymph % (Auto) 13.5 L (20-40) % [place] % (Auto) 5.2 (2-11) % Eos % (Auto) 0.4 (0-4) % Baso % (Auto) 0.2 (0-2) % Lymph # (Auto) 1.3 (1.2-4.9) X10*3/uL [place] # (Auto) 0.5 (0.1-1.2) X10*3/uL Eos # (Auto) 0.0 (0.0-0.4) X10*3/uL Baso # (Auto) 0.0 (0.0-0.2) X10*3/uL Abs Immat Gran (auto) 0.03 (0.00-0.03) X10*3/uL Absolute Neuts (auto) 7.9 (2.0-8.3) x10*3/uL Absolute Nucleated RBC 0.000 (0.0-0.012) X10*3/uL Nucleated RBC % (auto) 0.0 (0.0-0.2) /100WBC Sodium 137 (135-145) mmol/L Potassium 3.8 (3.3-5.1) mmol/L Chloride 103 (96-108) mmol/L Carbon Dioxide 22 (22-29) mmol/L Anion Gap 16 (12-20) BUN 7 L (9-16) mg/dL Creatinine 0.71 (0.5-1.4) mg/dL Estim Creat Clear Calc 111.8 Estimated GFR > 60 Random Glucose 86 (60-115) mg/dL Calcium 9.7 (8.4-10.2) mg/dL Total Bilirubin 0.7 (0.0-1.0) mg/dL AST 17 (5-31) U/L ALT < 6 (0-31) U/L Alkaline Phosphatase 52 (39-117) U/L Troponin I High Sens < 3.5 (<3.5-17.0) ng/L Total Protein 7.4 (6.5-8.0) g/dL Albumin 4.2 (3.5-5.0) g/dL Beta HCG, Quant 93397 mIU/mL Urine Color Urine Appearance Urine pH (5.0-9.0) Ur Specific [place] (1.005-1.025) Urine Protein (Neg-Trace) mg/dL Urine Glucose (UA) (Negative) mg/dL Urine Ketones (Negative) mg/dL Urine Blood (Negative) Urine Nitrite (Negative) Ur Leukocyte Esterase (Negative) Urine RBC (0-2) /HPF Urine WBC (0-5) /HPF Ur Squamous Epith Cells (0-2) /HPF Urine Bacteria (None Seen) Hyaline Casts (0-2) /LPF Urine Test (NEGATIVE) 12/09/21 12/09/21 Range/Units 13:50 13:50 WBC (4.8-10.8) X10*3/uL RBC (4.20-5.50) X10*6/uL Hgb (12.0-16.0) g/dl Hct (37.0-47.0) % MCV (80.0-98.0) fL MCH (27.0-33.0) pg MCHC (31.0-35.0) g/dl RDW (11.0-16.0) % Plt Count (160-400) X10*3/uL MPV (9.4-12.3) fL Immature Gran % (Auto) (0.0-0.4) % Neut % (Auto) (45-73) % Lymph % (Auto) (20-40) % [place] % (Auto) (2-11) % Eos % (Auto) (0-4) % Baso % (Auto) (0-2) % Lymph # (Auto) (1.2-4.9) X10*3/uL [place] # (Auto) (0.1-1.2) X10*3/uL Eos # (Auto) (0.0-0.4) X10*3/uL Baso # (Auto) (0.0-0.2) X10*3/uL Abs Immat Gran (auto) (0.00-0.03) X10*3/uL Absolute Neuts (auto) (2.0-8.3) x10*3/uL Absolute Nucleated RBC (0.0-0.012) X10*3/uL Nucleated RBC % (auto) (0.0-0.2) /100WBC Sodium (135-145) mmol/L Potassium (3.3-5.1) mmol/L Chloride (96-108) mmol/L Carbon Dioxide (22-29) mmol/L Anion Gap (12-20) BUN (9-16) mg/dL Creatinine (0.5-1.4) mg/dL Estim Creat Clear Calc Estimated GFR Random Glucose (60-115) mg/dL Calcium (8.4-10.2) mg/dL Total Bilirubin (0.0-1.0) mg/dL AST (5-31) U/L ALT (0-31) U/L Alkaline Phosphatase (39-117) U/L Troponin I High Sens (<3.5-17.0) ng/L Total Protein (6.5-8.0) g/dL Albumin (3.5-5.0) g/dL Beta HCG, Quant mIU/mL Urine Color Yellow Urine Appearance Turbid Urine pH 7.0 (5.0-9.0) Ur Specific [place] 1.020 (1.005-1.025) Urine Protein 30 (1+) H (Neg-Trace) mg/dL Urine Glucose (UA) Negative (Negative) mg/dL Urine Ketones Trace (Negative) mg/dL Urine Blood Small (1+) H (Negative) Urine Nitrite Negative (Negative) Ur Leukocyte Esterase Moderate (2+) H (Negative) Urine RBC 11-20 H (0-2) /HPF Urine WBC 6-10 H (0-5) /HPF Ur Squamous Epith Cells 11-20 (0-2) /HPF Urine Bacteria 2+ (None Seen) Hyaline Casts 0-2 (0-2) /LPF Urine Test POSITIVE H (NEGATIVE) Discharge Plan Discharge Clinical Impression: Vasovagal near-syncope, , Urinary tract infection during Patient Disposition: Home, Self-Care Instructions: (ED), Near Syncope (ED), Urinary Tract Infection in (ED) Additional Instructions: 1. Continue with your vitamins, continues to take plenty of water and complete the entire course of antibiotics as ordered. 2. Follow-up with your loss prevention/safety district manager on Saturday morning for re-evaluation and further outpatient management. Return to the ER for worsening symptoms. Prescriptions: New nitrofurantoin monohyd/m-cryst [Macrobid] 100 mg capsule 100 mg PO Q12H 7 Days Qty: 14 0RF Rx Instructions: must administer with a meal/food
[2021-12-09] MEDS: cefTRIAXone sodium 1 GM in 0.9 % Sodium Chloride 50 ML IV (17:59)
[2021-12-09 18:00] VITALS: BP 108/58; PULSE 76; RESP 16; O2SAT 100
[2021-12-09] MEDS: 0.9 % Sodium Chloride 1,000 ML 999 ML IV (18:07)
[2021-12-09] MEDS: Acetaminophen 325 MG TABLET 975 MG PO (18:07)
[2021-12-09 19:48] VITALS: RESP 16
== END 2021-12-09 20:58 | disposition home or self-care (01) ==
PROVIDERS: Emergency Provider Student in an Organized Health Care Education/Training Program
DX: O26.892 Other specified pregnancy related conditions, second trimester (principal); R55 Syncope and collapse; O23.42 Unspecified infection of urinary tract in pregnancy, second trimester; N39.0 Urinary tract infection, site not specified; Z3A.15 15 weeks gestation of pregnancy
CPT/HCPCS: 36415; 76775; 76815; 80053; 81001; 81003; 81025; 84484; 84702; 85025; 93005; 96361; 96365; 99284; 99285; J0696